=== PATIENT | female | born 1970 | race Asian ===

== ENCOUNTER 2018-11-17 01:10 | Emergency (ER) | payer BC, SELFPAY ==
[~2018-11-17 01:10] MED LIST: ASPI81TA39 PO; METO25 PO; SIMV-261 PO
== END 2018-11-17 01:47 | disposition left against medical advice (07) ==
LOC: EMS 01:11
DX: R00.2 Palpitations (principal); Z53.21 Procedure and treatment not carried out due to patient leaving prior to being seen by health care provider